=== PATIENT | male | born 1955 ===

== ENCOUNTER 2023-11-19 07:56 | Emergency (ER) | payer OTHER ==
[~2023-11-19] VITALS: Ht 177.8 cm; Wt 85.7 kg
[2023-11-19] MEDS ORDERED: COZAAR25 MG PO (07:59)
[2023-11-19] MEDS ORDERED: KETOROLAC TROMETHAMINE 60 MG VIAL IM ONE ×2 (08:45→08:48)
[2023-11-19] MEDS ORDERED: ORPHENADRINE CITRATE 30 MG/ML AMPUL IM ONE (08:45)
[2023-11-19] MEDS ORDERED: ORPHENADRINE CITRATE 30 MG/ML AMPUL ONE (08:47)
[2023-11-19] MEDS ORDERED: NORFLEX100MG PO (09:51)
[2023-11-19] MEDS ORDERED: KETO10TA2 PO (09:51)
== END 2023-11-19 10:00 | disposition home or self-care (01) ==
LOC: ER 07:56
DX: S70.02XA Contusion of left hip, initial encounter (principal); I10 Essential (primary) hypertension; M81.8 Other osteoporosis without current pathological fracture; Z85.828 Personal history of other malignant neoplasm of skin; W18.39XA Other fall on same level, initial encounter; Y93.89 Activity, other specified; Y92.413 State road as the place of occurrence of the external cause; M16.12 Unilateral primary osteoarthritis, left hip
CPT/HCPCS: 73502; 96372; 99283; J1885; J2360

== ENCOUNTER → 2023-11-26 10:26 | Outpatient (CLI) | payer OTHER ==
[~2023-11-26 10:26] MED LIST: COZAAR25 MG PO; KETO10TA2 PO; NORFLEX100MG PO
== END | disposition home or self-care (01) ==
LOC: MRI 10:26
PROVIDERS: ATTEND Internal Medicine
DX: M25.552 Pain in left hip (principal); S70.02XS Contusion of left hip, sequela
CPT/HCPCS: 73721

== ENCOUNTER 2024-01-01 07:14 | Outpatient (CLI) | payer OTHER | END 2024-01-01 07:23 | disposition home or self-care (01) | LOC: RAD 07:14 | PROVIDERS: ATTEND Internal Medicine | DX: M25.551 Pain in right hip (principal); M70.70 Other bursitis of hip, unspecified hip; M16.9 Osteoarthritis of hip, unspecified ==

== ENCOUNTER 2024-05-05 12:14 | Outpatient (CLI) | payer OTHER | END 2024-05-05 12:20 | disposition home or self-care (01) | LOC: RAD 12:14 | PROVIDERS: ATTEND Internal Medicine | DX: M25.551 Pain in right hip (principal); M16.11 Unilateral primary osteoarthritis, right hip; M25.351 Other instability, right hip ==

== ENCOUNTER 2024-05-06 13:46 | Outpatient (CLI) | payer OTHER | END 2024-05-06 14:10 | disposition home or self-care (01) | LOC: MRI 13:46 | PROVIDERS: ATTEND Neuromusculoskeletal Medicine & OMM | DX: M25.551 Pain in right hip (principal); M16.11 Unilateral primary osteoarthritis, right hip; M25.351 Other instability, right hip; E72.11 Homocystinuria; I63.81 Other cerebral infarction due to occlusion or stenosis of small artery; G90.A Postural orthostatic tachycardia syndrome [POTS] | CPT/HCPCS: 70551; 73721 ==

== ENCOUNTER 2024-07-16 14:30 | Outpatient (CLI) | payer OTHER | END 2024-07-16 14:49 | disposition home or self-care (01) | LOC: RAD 14:30 | PROVIDERS: ATTEND Orthopaedic Surgery Adult Reconstructive Orthopaedic Surgery | DX: I11.9 Hypertensive heart disease without heart failure (principal) ==

== ENCOUNTER 2024-12-09 10:03 | Outpatient (CLI) | payer OTHER | END 2024-12-09 10:05 | disposition home or self-care (01) | LOC: RAD 10:03 | PROVIDERS: ATTEND Orthopaedic Surgery Adult Reconstructive Orthopaedic Surgery | DX: M16.12 Unilateral primary osteoarthritis, left hip (principal); Z96.641 Presence of right artificial hip joint ==